=== PATIENT | male | born 1985 | race Caucasian/White ===

== ENCOUNTER 2018-01-21 18:04 | Emergency (ER) | payer SELFPAY ==
[~2018-01-21] VITALS: Ht 177.8 cm; Wt 79.4 kg
--- NOTE | 2018-01-21 18:10 | NUR ---
[id number]: PSYCHOTIC BEHAVIOR. REFUSES TO TALK. NAD NOTED, VSS, RESP EVEN AND UNLABORED, PT WAS PUT ON MONITOR. WAITING FOR MD BARBA
[2018-01-21] MEDS ORDERED: LORAZEPAM INJ 2 MG/ML VIAL IV ONE (18:30)
[2018-01-21] MEDS ORDERED: IV NS 0.9% 1,000 ML BAG IV ONE (18:30)
[2018-01-21] MEDS ORDERED: LORAZEPAM INJ 2 MG/ML VIAL ONE (18:44)
[2018-01-21 18:53] LABS: BASOPHILS # (AUTO) 0.2 /CMM (0.0-0.2); BASOPHILS % (AUTO) 1.1 % (0.0-2.0); EOSINOPHILS % (AUTO) 0.4 % (0.0-6.0); HEMATOCRIT 40 % (39-51); LYMPHOCYTES # (AUTO) 1.6 /CMM (0.8-4.8); LYMPHOCYTES % (AUTO) 8.3 % (20.0-44.0); MEAN CORPUSCULAR HGB CONC 35 g/dl (31.0-36.0); MEAN CORPUSCULAR VOLUME 85 fL (80-96); MONOCYTES # (AUTO) 0.9 /CMM (0.1-1.30); MONOCYTES % (AUTO) 4.5 % (2.0-12.0); NEUTROPHILS # (AUTO) 17.1 /CMM (1.8-8.9); NEUTROPHILS % (AUTO) 85.7 % (43.0-81.0); PLATELET COUNT (AUTO) 402 /CMM (150-450); RDW COEFFICIENT OF VARIATION 14.1 (11.5-15.0); WHITE BLOOD COUNT (AUTO) 19.9 K/uL (4.3-11.0)
--- NOTE | 2018-01-21 19:00 | NUR ---
PT REMOVED THE IV, WILL TRY TO OBTAIN IV ACCESS AGAIN FOR IV FLUIDS.
[2018-01-21 19:05] VITALS: BP 139/80
[2018-01-21 19:09] LABS: ALANINE AMINOTRANSFERASE 22 U/L (12-78); ALBUMIN 3.8 g/dL (3.4-5.0); ALKALINE PHOSPHATASE 60 U/L (46-116); ASPARTATE AMINOTRANSFERASE 23 U/L (15-37); BILIRUBIN,DIRECT 0.1 mg/dL (0.0-0.2); BILIRUBIN,TOTAL 0.3 mg/dL (0.2-1.0); CALCIUM, SERUM 8.7 mg/dL (8.5-10.1); CARBON DIOXIDE 21 mmol/L (21-32); CHLORIDE 103 mmol/L (98-107); CREATININE 1.7 mg/dL (0.6-1.3); GLUCOSE 229 mg/dL (74-106); POTASSIUM 3.7 mmol/L (3.5-5.1); SALICYLATE 3.8 mg/dL (2.8-20.0); SODIUM SERUM 139 mmol/L (136-145); TOTAL PROTEIN, SERUM 7.2 g/dL (6.4-8.2); UREA NITROGEN, BLOOD 15 mg/dL (7-18)
[2018-01-21 19:10] LABS: ACETAMINOPHEN 0 ug/ml (10-30)
[2018-01-21 19:22] LABS: ALCOHOL, BLOOD < 3 mg/dL (0-0)
--- NOTE | 2018-01-21 19:30 | NUR ---
Patient eloped from facility. ER MD notified.
[2018-01-21 20:01] LABS: NEUTROPHILS % (MANUAL) 83 (42-76)
[2018-01-21 20:02] LABS: BAND % (MANUAL) 2 % (0.0-5.0); LYMPHOCYTES % (MANUAL) 9 % (16-48); MONOCYTES % (MANUAL) 6 % (0-11.0)
[2018-01-21 20:56] LABS: THYROID STIMULATING HORMONE 5.682 uIU/mL (0.358-3.74)
== END 2018-01-21 20:04 | disposition left against medical advice (07) ==
LOC: ER 18:08
DX: Z04.6 Encounter for general psychiatric examination, requested by authority (principal); F15.10 Other stimulant abuse, uncomplicated
CPT/HCPCS: 36415; 80048-TC; 80076-TC; 82550-TC; 82962-TC; 84443-TC; 85025-TC; A4606; G0480; J2060; J7030; Z7610